=== PATIENT | male | born 1970 | race American Indian/Alaskan Native ===

== ENCOUNTER → 2016-10-22 | Outpatient (CLI) | payer OTHER ==
--- NOTE | 2016-10-24 14:14 | MR ---
EXAM DATE: 10/22/16 PATIENT'S AGE: 46 Patient: VIKI FRIAS Facility: [facility] Site . Site : 1970 Study: MRI-Spine Cervical [id number]/[id number] 7:55:58 PM Ordering Physician: Altaf Byrd Final Report: Indication: 46-year-old male. Cervicalgia. Patient reports neck and right arm symptoms. Technique: T1-T2 and STIR sagittal images with multilevel T2 axial acquisitions. Findings: There is a mild cervical kyphosis. Prevertebral tissues normal. Cerebellar tonsils are situated. C2-3: Normal. C3-4: Annular bulge. Right facet arthrosis with T2 prolongation in the articular pillars. Right facet effusion. No significant central or foraminal narrowing. C4-5: Normal. C5-6: Disc bulge and spurring. No significant central stenosis. Moderate to marked bilateral foraminal high-intensity are bilateral foraminal uncinate spurring. C6-7: Marked right foraminal stenosis by uncinate spurring. Mild retrolisthesis and mild left foraminal stenosis. Right central spondylitic ridging indents, but does not impinge the spinal cord. C7-T1 through T3-4: Normal. Impression: 1. Marked right C6-7 and marked bilateral C5-6 foraminal stenosis by uncinate spurring. 2. Mild effacement of the right ventral margin spinal cord at C6-7 by spondylitic ridging. 3. Right C3-4 facet synovitis. 4. Mild cervical kyphosis. 5. Spondylosis otherwise detailed above. Dictated by Per Baker MD @ Oct 23 2016 4:35PM Signed by: Per Baker MD @10/23/2016 4:35:12 PM (Electronic Signature) Report Signed by Proxy and Original Signed Document filed in the Medical Record. [facility]
== END ==
LOC: MW.MRI 14:09
PROVIDERS: ATTEND Family Medicine
DX: M48.02 Spinal stenosis, cervical region (principal); M65.88 Other synovitis and tenosynovitis, other site; M40.292 Other kyphosis, cervical region; M47.892 Other spondylosis, cervical region; M54.2 Cervicalgia
CPT/HCPCS: 72141; 72141-26

== ENCOUNTER 2024-11-05 18:09 | Emergency (ER) | payer OTHER ==
[2024-11-05] MEDS ORDERED: propofoL 1,000 MG/100 ML 100 ML IV STA (18:13)
[2024-11-05 18:22] LABS: BASOPHILS ABSOLUTE AUTO 0.01 K/uL (0.00-0.20); BASOPHILS PERCENT AUTO 0.1 % (0.0-1.0); EOSINOPHILS ABSOLUTE AUTO 0.09 K/uL (0.00-0.45); EOSINOPHILS PERCENT AUTO 0.7 % (0.0-6.0); HEMATOCRIT 41.5 % (42.0-52.0); HEMOGLOBIN 14.4 g/dL (14.0-18.0); IMMATURE GRAN ABSOLUTE AUTO 0.06 K/uL (0.00-0.05); IMMATURE GRAN PERCENT AUTO 0.5 % (0.0-0.4); LYMPHOCYTES ABSOLUTE AUTO 2.85 K/uL (1.00-4.80); MEAN CORPUSCULAR HEMOGLOBIN 31.9 pg (28.0-32.0); MEAN CORPUSCULAR HGB CONC 34.7 g/dL (32.0-36.0); MEAN PLATELET VOLUME 7.9 fL (9.4-12.4); MONOCYTES ABSOLUTE AUTO 0.61 K/uL (0.00-0.80); MONOCYTES PERCENT AUTO 4.9 % (0.0-8.0); NEUTROPHILS ABSOLUTE AUTO 8.79 K/uL (1.80-7.70); NEUTROPHILS PERCENT AUTO 70.8 % (41.0-71.0); PLATELET COUNT,PLT 275 K/uL (150-400); RED BLOOD CELL COUNT 4.51 M/uL (4.52-5.90); WHITE BLOOD CELL COUNT,WBC 12.41 K/uL (3.9-11.3)
[2024-11-05] MEDS: fentaNYL/Normal Saline 2,500 MCG in Premix Bag 1 BAG IV STA (18:31)
[2024-11-05 18:54] LABS: INR 0.99 (0.86-1.11); PTT,PARTIAL THROMBOPLSTIN TIME 26.6 SEC (23.9-30.7)
[2024-11-05] MEDS: Ketamine 500 mg/10 ML MDV IV ONE (19:02)
[2024-11-05] MEDS: Diphtheria,Pertussis(Acell),Tetanus Vaccine 0.5 ML Syringe IM ONE (19:06)
[2024-11-05 19:08] VITALS: BP 170/99; PULSE 106
[2024-11-05 19:09] LABS: A/G RATIO 1.3 (0.9-1.6); BILIRUBIN TOTAL 0.4 mg/dL (0.2-1.0); CALCIUM 9.2 mg/dL (8.5-10.1); CARBON DIOXIDE,CO2 26.2 mmol/L (21.0-32.0); CREATININE 0.8 mg/dL (0.8-1.3); EST CRCL DRUG DOSING (CG) 113.17 mL/min; POTASSIUM,K 4.1 mmol/L (3.5-5.1)
[2024-11-05 19:19] LABS: BASE EXCESS ARTERIAL -0.3 (-2.0-3.0); BICARBONATE,ARTERIAL 27 mEq/L (21-28); PCO2 ARTERIAL 52 mmHG (35-45); PO2 ARTERIAL 152 mmHG (83-108)
[2024-11-05] MEDS: propofoL 1,000 MG/100 ML 100 ML IV SCH (23:41)
== END 2024-11-05 19:11 ==
LOC: MW.ED 18:09
DX: S30.0XXA Contusion of lower back and pelvis, initial encounter (principal); E78.00 Pure hypercholesterolemia, unspecified; Z23 Encounter for immunization; Z86.16 Personal history of COVID-19; Z79.899 Other long term (current) drug therapy; Z79.82 Long term (current) use of aspirin; V86.99XA Unspecified occupant of other special all-terrain or other off-road motor vehicle injured in nontraffic accident, initial encounter
CPT/HCPCS: 36415; 36600; 51702; 71045; 72170; 80053; 80307; 82803; 83690; 85025; 85610; 85730; 86850; 86900; 86901; 90471; 90715; 96365; 96368; 99291; G0390; J2704; J3490; 99285